=== PATIENT | male | born 1980 | race Caucasian/White ===

== ENCOUNTER 2017-01-08 09:59 | Emergency (ER) | payer BC ==
--- NOTE | 2017-01-08 10:41 | EDM.PDOC ---
ED HISTORY OF PRESENT ILLNESS - General Chief Complaint: Respiratory Problem Stated Complaint: COLD Time Seen by Provider: 01/08/17 10:20 Source of Information: Reports: Patient History Limitations: Reports: No limitations - History of Present Illness INITIAL COMMENTS - FREE TEXT/NARRATIVE: HISTORY AND PHYSICAL: History of present illness: [Comes to the emergency room complaining of fever, chills, sore throat, left earache and productive cough for the past 3-4 days. Describes his throat pain as a burning sensation in the back of his throat. No neck pain. He's been taking some Mucinex and TheraFlu with minimal improvement in his symptoms. He took Mucinex this morning. No Tylenol or ibuprofen. One episode of vomiting in the shower this morning. He's been coughing up thick brown colored sputum the size of a golf ball. Mild runny nose with clear drainage. He has chest congestion. He had strep throat approximately 2 years ago symptoms feel similar. No other ill contacts at home.] Review of systems: As per history of present illness and below otherwise all systems reviewed and negative. Past medical history: As per history of present illness and as reviewed below otherwise noncontributory. Surgical history: As per history of present illness and as reviewed below otherwise noncontributory. Social history: No reported history of drug or alcohol abuse. Family history: As per history of present illness and as reviewed below otherwise noncontributory. Physical exam: HEENT: Atraumatic, normocephalic. Conjunctiva lightly erythematous. Air-fluid levels present to both TMs. Left TM is erythematous. Nares are patent and erythematous. mucous membranes moist, posterior oropharynx is brightly erythematous. No exudate noted. neck supple, no lymphadenopathy. Nontender. Lungs: Clear to auscultation, breath sounds equal bilaterally. Heart: S1S2, regular, negative for clicks, rubs, or JVD. Abdomen: Soft, nondistended, nontender. Pelvis: Stable nontender. Genitourinary: Deferred. Rectal: Deferred. Extremities: Atraumatic, no cyanosis or edema to feet or lower legs Neurovascular unremarkable. Neuro: Awake, alert, oriented. Cranial nerves II through XII unremarkable. Motor and sensory unremarkable throughout. Exam nonfocal. Diagnostics: [strep swab and throat culture] Impression: Acute otitis media Plan: [Strep swab is negative. Throat culture is pending. Amoxicillin 875 mg twice a day for 10 days 0 refills. Followup with primary care provider. Tylenol or ibuprofen, Benadryl as needed continue Mucinex. Discussed with patient that this is a self-limiting and should improve after a couple of days of antibiotics. He is in agreement with today's plan and verbalized understanding of today's discussion.] Definitive disposition and diagnosis as appropriate pending reevaluation and review of above. - Related Data Allergies/ADRs: Allergies Allergy/AdvReac Type Severity Reaction Status Date / Time No Known Allergies Allergy Verified 01/08/17 10:17 Home Meds: Home Meds . [No Known Home Meds] 03/08/16 [History] Past Medical History - Past Health History Medical/Surgical History: Denies Medical/Surgical History Gastrointestinal History: Reports: GERD Genitourinary History: Reports: Other (see below) Other Genitourinary History: kidney stones - Infectious Disease History Infectious Disease History: Reports: Chicken pox, Influenza - Past Surgical History Male Surgical History: Reports: Renal Calculus, Other (see below) Other Male Surgeries/Procedures: kidney stone removed Other Musculoskeletal Surgeries/Procedures:: sprained ankles apprx 13 times Social & Family History - Family History Family Medical History: Noncontributory - Tobacco Use Smoking Status *Q: Current Every Day Smoker Years of Tobacco use: 25 Packs/Tins Daily: 1 - Recreational Drug Use Recreational Drug Use: No ED ROS GENERAL - Review of Systems Review Of Systems: ROS reveals no pertinent complaints other than HPI. ED EXAM, GENERAL - Physical Exam Exam: See Below Course - Vital Signs Last Recorded V/S: Last Vital Signs Temp 99.1 F 01/08/17 10:15 Pulse 94 01/08/17 10:15 Resp 18 01/08/17 10:15 BP 149/87 H 01/08/17 10:15 Pulse Ox 97 01/08/17 10:15 - Orders/Labs/Meds Orders: Active Orders 24 hr Category Date Time Status CULTURE STREP A CONFIRMATION [RM] Stat Lab 01/08/17 10:31 Results CULTURE THROAT [RM] Stat Lab 01/08/17 10:31 Received STREP SCRN A RAPID W CULT CONF [RM] Stat Lab 01/08/17 10:31 Results Departure - Departure Time of Disposition: 11:15 Disposition: Home, Self-Care 01 Condition: good Clinical Impression: Acute otitis media Qualifiers: Laterality: right Recurrence: not specified as recurrent Referrals: PCP,None [Primary Care Provider] - Forms: ED Department Discharge Additional Instructions: The following information is given to patients seen in the emergency department who are being discharged to home. This information is to outline your options for follow-up care. We provide all patients seen in our emergency department with a follow-up referral. The need for follow-up, as well as the timing and circumstances, are variable depending upon the specifics of your emergency department visit. If you don't have a primary care physician on staff, we will provide you with a referral. We always advise you to contact your personal physician following an emergency department visit to inform them of the circumstance of the visit and for follow-up with them and/or the need for any referrals to a consulting specialist. The emergency department will also refer you to a specialist when appropriate. This referral assures that you have the opportunity for follow-up care with a specialist. All of these measure are taken in an effort to provide you with optimal care, which includes your follow-up. Under all circumstances we always encourage you to contact your private physician who remains a resource for coordinating your care. When calling for follow-up care, please make the office aware that this follow-up is from your recent emergency room visit. If for any reason you are refused follow-up, please contact the [facility] emergency department at and asked to speak to the emergency department charge nurse. [facility] [address] [place] [id number] Your strep swab came back negative. Throat culture is pending. Followup with your primary care provider in 48-72 hours. Tylenol or ibuprofen as needed for discomfort. You may take Benadryl to relieve your discomfort and to help with sleep. Continue Mucinex as needed for congestion. Take antibiotics as prescribed Return to ER as needed as discussed. - My Orders Last 24 Hours: My Active Orders 01/08/17 10:31 CULTURE STREP A CONFIRMATION [RM] Stat CULTURE THROAT [] Stat STREP SCRN A RAPID W CULT CONF [RM] Stat - Assessment/Plan Last 24 Hours: My Active Orders 01/08/17 10:31 CULTURE STREP A CONFIRMATION [RM] Stat CULTURE THROAT [RM] Stat STREP SCRN A RAPID W CULT CONF [RM] Stat
[2017-01-08 12:49] VITALS: BP 141/100
== END 2017-01-08 11:45 | disposition home or self-care (01) ==
LOC: MW.ED 09:59
DX: H66.91 Otitis media, unspecified, right ear (principal); F17.210 Nicotine dependence, cigarettes, uncomplicated; Z87.442 Personal history of urinary calculi
CPT/HCPCS: 87070; 87081; 87880; 99283

== ENCOUNTER 2017-10-23 10:49 | Emergency (ER) | payer BC ==
[2017-10-23 11:12] VITALS: BP 131/94
--- NOTE | 2017-10-23 11:16 | EDM.PDOC ---
ED HPI GENERAL MEDICAL PROBLEM - General Chief Complaint: Neurological Problem Stated Complaint: POSSIBLE STROKE Time Seen by Provider: 10/23/17 11:12 Source of Information: Reports: Patient History Limitations: Reports: No Limitations - History of Present Illness INITIAL COMMENTS - FREE TEXT/NARRATIVE: HISTORY AND PHYSICAL: 37-year-old male presenting with facial droop to the right side/he was [facility] today then removed and sent to ER[] History of Present Illness: []Patient drove to the ER. He states he was eating at [employer] felt a "pop"to the lower right mandible. And had pain for about 2 minutes. He then noticed he wasn' t able to close his eye when he went back to work. He has facial droop. Lines of numbness from the center of his lips laterally to the right Review of Systems: As per history of present illness and below otherwise all systems reviewed and negative. Past medical history: As per history of present illness and as reviewed below otherwise noncontributory. Surgical history: As per history of present illness and as reviewed below otherwise noncontributory. Social history: No reported history of drug or alcohol abuse. Family history: As per history of present illness and as reviewed below otherwise noncontributory. Physical exam: Alert and oriented man answering questions appropriately no shortness of breath with beaking in full sentences. Pain is a lot a 2/10 denies any need for any medication for pain HEENT: Atraumatic, normocehpalic, pupils reactive, negative for conjunctival pallor or scleral icterus, mucous membranes moist, throat clear, neck supple, nontender, trachea midline. Lower lid is not closing on the right, he is unable to raise and lower his eyebrows on the right. Facial drooping noted on the right side. Lungs: Clear to auscultation, breath sounds equal bilaterally, chest non tender. Heart: S1S2, regular, negative for clicks, rubs, or JVD. Abdomen: Soft, nondistended, nontender. Negative for masses or hepatossplenmegaly. Negative for costovertebral tenderness. Pelvis: Stable nontender. Genitourinary: Deferred. Rectal: Deferred Extremities: Atraumatic, negative for cords or calf pain. Neurovascular facial droop is present to the right, he is unable to close his right eyelid, bottom lid does not move. Standing has no arm drift and moves extremities appropriately. Is able to move tongue easily [id number] has more difficulty with moving tongue up and down. Neuro: Awake, alert, oriented. Cranial nerves II through XII unremarkable. Cerebellum unremarkable. Motor and sensory unremarkable throughout. Exam nonfocal. 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 Treatments QA TECH: Reports: Acetaminophen, Aspirin, Other (see below) Other Treatments QA TECH: exedrin Right Head Pain Score (Numeric/FACES): 3 - Related Data Allergies Allergy/AdvReac Type Severity Reaction Status Date / Time No Known Allergies Allergy Verified 01/08/17 10:17 Home Meds: Home Meds Prednisone [IMW: predniSONE] 20 mg PO WITHBREAKFAST #10 tab 10/23/17 [Rx] valACYclovir [Valtrex] 1,000 mg PO BID #14 tablet 10/23/17 [Rx] Past Medical History - Past Health History Medical/Surgical History: Denies Medical/Surgical History Gastrointestinal History: Reports: GERD Genitourinary History: Reports: Other (See Below) Other Genitourinary History: kidney stones - Infectious Disease History Infectious Disease History: Reports: Chicken Pox, Influenza - Past Surgical History Male Surgical History: Reports: Renal Calculus, Other (See Below) Social & Family History - Family History Family Medical History: Noncontributory - Tobacco Use Smoking Status *Q: Current Every Day Smoker Years of Tobacco use: 25 Packs/Tins Daily: 1 - Recreational Drug Use Recreational Drug Use: No ED ROS GENERAL - Review of Systems Review Of Systems: ROS reveals no pertinent complaints other than HPI. ED EXAM, NEURO - Physical Exam Exam: See Below (See dictation) Course - Vital Signs Last Recorded V/S: Last Vital Signs Temp 36.4 C 10/23/17 11:02 Pulse 64 10/23/17 11:02 Resp 20 10/23/17 11:02 BP 131/94 H 10/23/17 11:02 Pulse Ox - Orders/Labs/Meds Orders: Active Orders 24 hr Category Date Time Status COMPREHENSIVE METABOLIC PN,CMP [CHEM] Stat Lab 10/23/17 12:01 Received Labs: Laboratory Tests 10/23/17 Range/Units 12:01 WBC 6.48 (4.0-11.0) K/uL RBC 5.26 (4.50-5.90) M/uL Hgb 15.2 (13.0-17.0) g/dL Hct 43.4 (38.0-50.0) % MCV 82.5 (80.0-98.0) fL MCH 28.9 (27.0-32.0) pg MCHC 35.0 (31.0-37.0) g/dL RDW Std Deviation 39.8 (28.0-62.0) fl RDW Coeff of Raghav 13 (11.0-15.0) % Plt Count 223 (150-400) K/uL MPV 11.00 (7.40-12.00) fL Neut % (Auto) 54.5 (48.0-80.0) % Lymph % (Auto) 36.6 (16.0-40.0) % Robeson % (Auto) 7.4 (0.0-15.0) % Eos % (Auto) 1.2 (0.0-7.0) % Baso % (Auto) 0.3 (0.0-1.5) % Neut # (Auto) 3.5 (1.4-5.7) K/uL Lymph # (Auto) 2.4 (0.6-2.4) K/uL Robeson # (Auto) 0.5 (0.0-0.8) K/uL Eos # (Auto) 0.1 (0.0-0.7) K/uL Baso # (Auto) 0.0 (0.0-0.1) K/uL Nucleated RBC % 0.0 /100WBC Nucleated RBCs # 0 K/uL Departure - Departure Time of Disposition: 12:27 Disposition: Home, Self-Care 01 Condition: Good Clinical Impression: Reynaga's palsy - Discharge Information Prescriptions: Prednisone [IMW: predniSONE] 20 mg PO WITHBREAKFAST #10 tab valACYclovir [Valtrex] 1,000 mg PO BID #14 tablet Forms: ED Department Discharge - My Orders Last 24 Hours: My Active Orders 10/23/17 12:01 COMPREHENSIVE METABOLIC PN,CMP [CHEM] Stat - Assessment/Plan Last 24 Hours: My Active Orders 10/23/17 12:01 COMPREHENSIVE METABOLIC PN,CMP [CHEM] Stat
--- NOTE | 2017-10-23 11:55 | CT ---
EXAMINATION: Non contrast CT head. Coronal and sagittal reformats. HISTORY: Facial droop FINDINGS: No evidence of intra or extra axial hemorrhage, mass, midline shift, hydrocephalus or edema. No hypoattenuation changes in the major vascular territories to suggest acute infarct. No abnormal intracranial calcifications are detected. No evidence of substantial vascular calcificat ions. Paranasal sinuses and mastoid air cells are well aerated without substantial findings. The orbits an d globes are symmetric. Pituitary fossa appears unremarkable. Calvarium is intact. No evidence of skull fracture. IMPRESSION: No acute intracranial findings.
[2017-10-23 12:38] LABS: CHLORIDE,CL 110 mmol/L (98-110); SODIUM,NA 141 mmol/L (136-146)
== END 2017-10-23 12:53 | disposition home or self-care (01) ==
LOC: MW.ED 10:49
DX: G51.0 Bell's palsy (principal); F17.210 Nicotine dependence, cigarettes, uncomplicated; K21.9 Gastro-esophageal reflux disease without esophagitis
CPT/HCPCS: 36415; 70450; 70450-26; 80053; 85025; 99284; 99284-25

== ENCOUNTER 2017-12-08 11:26 | Day surgery (SDC) | payer BC ==
[~2017-12-08 11:26] MED LIST: Betamethasone Acetate/Betamethasone Sod Phosphate 30 MG/5 ML MDV ONE; Iopamidol 408 MG/ML 50 ML SDV ONE; Lidocaine 2% 5 ML SDV ONE; Ropivacaine 0.5% 5 MG/ML 30 ML SDV ONE
--- NOTE | 2017-12-08 17:41 | OR ---
SURGEON: Della Meng D.O. DATE OF PROCEDURE: 12/08/2017 OR STAFF PRESENT: 1. Judith Sharpe RN. 2. Elvi Penny RT. WOUND CLASSIFICATION: I. PREOPERATIVE DIAGNOSIS: Coccydynia. POSTOPERATIVE DIAGNOSIS: Coccydynia. PROCEDURE PERFORMED: 1. Coccyx injection. 2. Fluoroscopic guidance for needle placement. 3. Local with oral Valium for sedation. SCREENING QUESTIONS: The patient answered "no" to all of the following questions: 1. Are you allergic to latex? 2. Do you have a bleeding disorder? 3. Do you have any current local or systemic infections? 4. Are you taking any anti-inflammatories or blood thinners? 5. Do you have any joint replacements, heart valve replacements, or a pacemaker? DESCRIPTION OF PROCEDURE: The patient had the procedure thoroughly explained including all possible risks, benefits and alternatives. Consent was signed in my clinic indicating understanding and willingness to proceed. The patient presented to [facility] and was escorted to the dressing room to disrobe and change into a hospital gown. Preoperative vital signs were taken and stable. The patient reported that Valium was taken prior to the procedure. The patient was brought back to the procedure room and placed in the prone position on the procedure room table. A pillow was placed under the hips in order to flatten the lumbar lordosis. The back was prepped with ChloraPrep and sterilely draped. All personnel in the operating room were dressed in appropriate attire including surgical scrubs, head and shoe covers. This was to ensure sterility while in the treatment room. During the time fluoroscopy was in use, all personnel in the operating room wore lead galvan with thyroid collars. Sterile technique was used throughout the procedure. The patient was awake and conversant throughout the procedure. There was no evidence of infection at the site of needle insertion. Skeletal landmarks were identified under fluoroscopy for the coccyx injection. Skin was anesthetized with 2% lidocaine with a sterile 27-gauge 1.5 inch needle. Then a 22g spinal needle was placed in direct contact with the coccyx and associated nerves under fluoroscopic guidance. No heme, cerebrospinal fluid, or paresthesias were noted. Isovue-200 contrast dye was injected in 0.2 cubic centimeter increments and seen to outline the coccyx in both AP and lateral views. There was no intravascular flow pattern observed under live fluoroscopy. Then 12 milligrams of Celestone and local was slowly injected after negative aspiration. The patient tolerated the procedure well. Vital signs were stable during and after the procedure. The staff escorted the patient to the recovery area and the patient was released in stable condition after a brief stay in the recovery room monitored by the nurse. The patient was given both oral and written discharge and follow up instructions with recommendation to follow up given for 2-3 weeks. The patient voiced understanding including understanding of those signs and symptoms that would require emergency care. The patient knows how to contact the office if there are any additional problems or questions in the meantime. PREOPERATIVE PAIN: 8/10. POSTOPERATIVE PAIN: 0/10. FOLLOWUP: Follow up in the Pain Clinic in 3 weeks. SOCORRO MALHOTRA /[id number] SANDRA
== END 2017-12-08 13:07 | disposition home or self-care (01) ==
LOC: MW.SDS 11:26
PROVIDERS: ATTEND Anesthesiology
DX: M53.3 Sacrococcygeal disorders, not elsewhere classified (principal); E66.9 Obesity, unspecified; Z79.899 Other long term (current) drug therapy; Z68.37 Body mass index [BMI] 37.0-37.9, adult
CPT/HCPCS: 62323; J0702; Q9966; J2795

== ENCOUNTER 2018-01-14 10:57 | Day surgery (SDC) | payer BC ==
--- NOTE | 2018-01-14 15:09 | OR ---
SURGEON: Della Meng D.O. DATE OF PROCEDURE: 01/14/2018 OR STAFF PRESENT: 1. Gloria Spence RN. 2. Judith Mcdermott RN. 3. RT Tierra. WOUND CLASSIFICATION: I. PREOPERATIVE DIAGNOSES: 1. Lumbar degenerative disk disease. 2. Lumbar spondylosis. POSTOPERATIVE DIAGNOSES: 1. Lumbar degenerative disk disease. 2. Lumbar spondylosis. PROCEDURES PERFORMED: 1. Lumbar epidural steroid injection, interlaminar at L4-L5. 2. Fluoroscopic guidance for needle placement. 3. Local with oral Valium for sedation. SCREENING QUESTIONS: The patient answered "no" to all of the following questions: 1. Are you allergic to latex? 2. Do you have a bleeding disorder? 3. Do you have any current local or systemic infections? 4. Are you taking any anti-inflammatories or blood thinners? 5. Do you have any joint replacements, heart valve replacements, or a pacemaker? DESCRIPTION OF PROCEDURE: The patient had the procedure thoroughly explained including all possible risks, benefits and alternatives. Consent was signed in my clinic indicating understanding and willingness to proceed. The patient presented to [facility] and was escorted to the dressing room to disrobe and change into a hospital gown. Preoperative vital signs were taken and stable. The patient reported that Valium was taken prior to the procedure. The patient was brought back to the procedure room and placed in the prone position on the procedure room table. A pillow was placed under the hips in order to flatten the lumbar lordosis. The back was prepped with ChloraPrep and sterilely draped. All personnel in the operating room were dressed in appropriate attire including surgical scrubs, head and shoe covers. This was to ensure sterility while in the treatment room. During the time fluoroscopy was in use, all personnel in the operating room wore lead galvan with thyroid collars. Sterile technique was used throughout the procedure. The patient was awake and conversant throughout the procedure. There was no evidence of infection at the site of needle insertion. Skeletal landmarks were identified under fluoroscopy for the lumbar epidural. Skin was anesthetized with 2% lidocaine with a sterile 27-gauge 1.5 inch needle. Then, a 20-gauge Tuohy epidural needle was placed in the epidural space with loss of resistance technique under fluoroscopic guidance. No heme, cerebrospinal fluid, or paresthesias were noted. Isovue-200 contrast dye was injected in 0.2 cubic centimeter increments and seen to outline the epidural space in both AP and lateral views. There was no intravascular flow pattern observed under live fluoroscopy. Then 12 milligrams of Celestone was slowly injected after negative aspiration. The patient tolerated the procedure well. Vital signs were stable during and after the procedure. The staff escorted the patient to the recovery area and the patient was released in stable condition after a brief stay in the recovery room monitored by the nurse. The patient was given both oral and written discharge and follow up instructions with recommendation to follow up given for 2-3 weeks. The patient voiced understanding including understanding of those signs and symptoms that would require emergency care. The patient knows how to contact the office if there are any additional problems or questions in the meantime. PREOPERATIVE PAIN: 3 to 5/10. POSTOPERATIVE PAIN: 0/10. PLAN: Follow up in the Pain Clinic in 3 weeks. SOCORRO / MARYA /[id number]
== END 2018-01-14 13:55 | disposition home or self-care (01) ==
LOC: MW.SDS 10:57
PROVIDERS: ATTEND Anesthesiology
DX: M51.36 Other intervertebral disc degeneration, lumbar region (principal); M47.816 Spondylosis without myelopathy or radiculopathy, lumbar region; E66.9 Obesity, unspecified; Z68.36 Body mass index [BMI] 36.0-36.9, adult
CPT/HCPCS: 62323; J0702; J2795; Q9966

== ENCOUNTER 2022-01-29 10:16 | Day surgery (SDC) | payer BC ==
[~2022-01-29 10:16] MED LIST changes: +Acetaminophen 1,000 MG in Premix Bag 1 BAG IV SCH; -Betamethasone Acetate/Betamethasone Sod Phosphate 30 MG/5 ML MDV ONE; +Bupivacaine 0.25% 30 ML SDV ONE; -Iopamidol 408 MG/ML 50 ML SDV ONE; +Lactated Ringers 1,000 ML IV SCH; -Lidocaine 2% 5 ML SDV ONE; +Octyl 2-Cyanoacrylate 1 Tube ONE; +Pregabalin 75 MG Cap PO SCH; -Ropivacaine 0.5% 5 MG/ML 30 ML SDV ONE; +cefOXitin 2 GM in Premix Bag 1 BAG IV SCH
[2022-01-29] MEDS ORDERED: Ondansetron 4 MG/2 ML SDV IVPUSH PRN (10:37)
[2022-01-29] MEDS ORDERED: Naloxone 0.4 MG/ML SDV IVPUSH PRN (10:37)
[2022-01-29] MEDS ORDERED: HYDROmorphone 1 MG/ML Syringe IVPUSH PRN (10:37)
[2022-01-29] MEDS ORDERED: Metoclopramide 10 MG/2 ML SDV IVPUSH PRN (10:37)
[2022-01-29] MEDS ORDERED: Albuterol 0.083% 2.5 MG/3 ML Neb Soln NEB PRN (10:37)
[2022-01-29] MEDS ORDERED: fentaNYL 100 MCG/2 ML SDV IVPUSH PRN (10:37)
[2022-01-29] MEDS ORDERED: Propofol 200 MG/20 ML SDV ONE (10:44)
[2022-01-29] MEDS ORDERED: Rocuronium Bromide 50 MG/5 ML Syringe ONE (10:45)
[2022-01-29] MEDS ORDERED: Esmolol 100 MG/10 ML SDV ONE (10:45)
[2022-01-29] MEDS ORDERED: Midazolam 1 MG/ML 2 ML SDV ONE (10:45)
[2022-01-29] MEDS ORDERED: fentaNYL 100 MCG/2 ML SDV ONE (10:45)
[2022-01-29] MEDS ORDERED: cefOXitin 1 GM Vial ONE (12:38)
[2022-01-29] MEDS ORDERED: Ketamine HCL/NACL, ISO-OSM 50 MG/5 ML Syringe ONE (12:41)
[2022-01-29] MEDS ORDERED: Dexamethasone 4 MG/ML 5 ML MDV ONE (12:56)
[2022-01-29] MEDS ORDERED: ePHEDrine 50 MG/ML SDV ONE (13:05)
[2022-01-29] MEDS ORDERED: Sugammadex Sodium 200 MG/2 ML VIAL ONE (13:26)
[2022-01-29] MEDS ORDERED: Ondansetron 4 MG/2 ML SDV ONE (13:26)
[2022-01-29] MEDS ORDERED: Ketorolac 30 MG/ML SDV ONE (13:26)
[2022-01-29 15:38] VITALS: BP 110/65; PULSE 63
[2022-01-29] MEDS ORDERED: Acetaminophen/HYDROcodone 325-5 MG Tab PO ONE (15:40)
[2022-01-29] MEDS ORDERED: Acetaminophen/HYDROcodone 325-5 MG Tab ONE (15:42)
== END 2022-01-29 16:23 | disposition home or self-care (01) ==
LOC: MW.SDS 10:16
PROVIDERS: ATTEND Surgery
DX: K81.1 Chronic cholecystitis (principal); K82.8 Other specified diseases of gallbladder; K21.9 Gastro-esophageal reflux disease without esophagitis; F32.A Depression, unspecified; G47.00 Insomnia, unspecified; F17.210 Nicotine dependence, cigarettes, uncomplicated; E66.9 Obesity, unspecified; Z88.5 Allergy status to narcotic agent; Z91.041 Radiographic dye allergy status; Z68.38 Body mass index [BMI] 38.0-38.9, adult; Z98.890 Other specified postprocedural states
CPT/HCPCS: 47562; A9270; J0131; J0694; J1100; J1885; J2250; J2405; J2704; J3010; J3490; J7030; J7120; 00790